=== PATIENT | male | born 1985 | race Caucasian/White ===

== ENCOUNTER 2021-03-14 17:49 | Emergency (ER) | payer MEDICAID, MEDICARE ==
[~2021-03-14] VITALS: Ht 180 cm; Wt 90.0 kg
[~2021-03-14 17:49] MED LIST: FLUORESCEIN (FLUOR-I-STRIPS) 1 MG STRP ONE; TETRACAINE 0.5% OPHTH SOLN 4 ML BTL (SINGLE DOSE ONLY) ONE
--- NOTE | 2021-03-14 17:54 | ED EENT ---
History of Present Illness General Stated Complaint: RT EYE PROBLEMS History of Present Illness Date Seen by Provider: March 14, 2021 Time Seen by Provider: 17:54 Initial Comments 35-year-old male presents with possible foreign body in his right eye. Patient has developmental delay. He likes to break CDs. He broke a CD and possibly had a piece fly up into his right eye. Patient complains of some mild pain. HPI is limited based on his developmental delay. There is no other complaints. Allergies and Home Medications Allergies Coded Allergies: No Known Drug Allergies (Unverified , 03/14/21) Patient Home Medication List Home Medication List Reviewed: Yes Review of Systems Review of Systems Constitutional: no symptoms reported Eyes: See HPI Ears: No Symptoms Reported Nose: no symptoms reported Respiratory: no symptoms reported Cardiovascular: no symptoms reported Past Ebulrfu-Ofakwk-Dykmru Hx Past Med/Social Hx: Reviewed Nursing Past Med/Soc Hx Physical Exam Vital Signs Vital Signs - First Documented 03/14/21 17:50 Temp 36.9 Pulse 75 Resp 18 B/P (MAP) 133/91 (105) Pulse Ox 97 O2 Delivery Room Air Height, Weight, BMI Height: '" Weight: lbs. oz. kg; BMI Method: General Appearance: WD/WN, no apparent distress Eyes: right eye other (Very small clear foreign body right cornea, no obvious abrasion with fluorescein stain) Mouth/Throat: pharynx normal Cardiovascular: normal peripheral pulses, regular rate, rhythm Respiratory: lungs clear, normal breath sounds Skin: normal color, warm/dry Procedures/Interventions Eye : Location: right eye Eye FB Removal: removal w/ cotton swab Anesthesia (gtts): Tetracaine Progress/Procedure Conclusion Foreign body is no longer visualized. I recommended they follow-up with an eye doctor tomorrow since it was very difficult to see due to it being clear and extremely small. Patient is not complaining of foreign body sensation at this time Progress/Results/Core Measures Results/Orders My Orders Orders - EVELINE SALEH DO Tetracaine 0.5% Ophth Adriane Sdv (Tetracai (03/14/21 17:48) Fluorescein Strips ([id number]) (03/14/21 17:49) Tetracaine 0.5% Ophth Adriane Sdv (Tetracai (03/14/21 18:15) Fluorescein Strips ([id number]) (03/14/21 18:15) Departure Impression Primary Impression: Foreign body of right conjunctiva Qualified Codes: T15.11XA - Foreign body in conjunctival sac, right eye, initial encounter Disposition: 01 HOME, SELF-CARE Condition: Stable Departure-Patient Inst. Patient Instructions: Foreign Body in Eye ED Add. Discharge Instructions: Follow-up with sole conforming machine operator tomorrow for reevaluation EVELINE SALEH DO March 14, 2021 17:54
[2021-03-14 18:12] VITALS: BP 133/91
[2021-03-14] MEDS ORDERED: TETRACAINE 0.5% OPHTH SOLN 4 ML BTL (SINGLE DOSE ONLY) OU ONE (18:15)
[2021-03-14] MEDS ORDERED: FLUORESCEIN (FLUOR-I-STRIPS) 1 MG STRP OU ONE (18:15)
== END 2021-03-14 18:12 | disposition home or self-care (01) ==
LOC: ER FS 17:52
DX: T15.11XA Foreign body in conjunctival sac, right eye, initial encounter (principal)
CPT/HCPCS: 99282

== ENCOUNTER → 2021-10-30 | Outpatient (CLI) | payer MEDICARE, MEDICAID ==
[2021-10-30 11:04] LABS: ALBUMIN 4.4 GM/DL (3.2-4.5); BILIRUBIN,TOTAL 0.2 MG/DL (0.1-1.0); CALCIUM 9.1 MG/DL (8.5-10.1); CREATININE SERUM 0.93 MG/DL (0.60-1.30); POTASSIUM 4.2 MMOL/L (3.6-5.0); TOTAL PROTEIN 7.2 GM/DL (6.4-8.2)
[2021-10-30 11:17] LABS: HEMATOCRIT 45 % (40-54); MEAN CORPUSCULAR HEMOGLOBIN 31 pg (25-34); MEAN CORPUSCULAR HGB CONC 33 g/dL (32-36); MEAN CORPUSCULAR VOLUME 91 fL (80-99); PLATELET COUNT 237 10^3/uL (130-400); WHITE BLOOD COUNT 7.2 10^3/uL (4.3-11.0)
== END ==
LOC: LAB FS 08:34
DX: F72 Severe intellectual disabilities (principal); F91.9 Conduct disorder, unspecified; F42.2 Mixed obsessional thoughts and acts; Z79.899 Other long term (current) drug therapy
CPT/HCPCS: 36415; 80053; 80061; 80156; 83036; 84443; 85027

== ENCOUNTER → 2022-08-30 | Outpatient (CLI) | payer MEDICARE, MEDICAID ==
[2022-08-30 09:38] LABS: HEMATOCRIT 43 % (40-54); HEMOGLOBIN 14.5 g/dL (13.3-17.7); MEAN CORPUSCULAR HEMOGLOBIN 31 pg (25-34); MEAN CORPUSCULAR HGB CONC 34 g/dL (32-36); MEAN CORPUSCULAR VOLUME 90 fL (80-99); MEAN PLATELET VOLUME 9.2 fL (9.0-12.2); PLATELET COUNT 235 10^3/uL (130-400); WHITE BLOOD COUNT 7.3 10^3/uL (4.3-11.0)
[2022-08-30 09:48] LABS: ALBUMIN 4.3 GM/DL (3.2-4.5); BILIRUBIN,TOTAL 0.3 MG/DL (0.1-1.0); CREATININE SERUM 0.96 MG/DL (0.60-1.30); POTASSIUM 4.1 MMOL/L (3.6-5.0)
[2022-08-30 15:38] LABS: CARBAMAZEPINE (TEGRETOL) 6.2 UG/ML (4.0-12.0)
== END ==
LOC: LAB FS 08:14
PROVIDERS: ATTEND Nurse Practitioner Psychiatric/Mental Health
DX: F72 Severe intellectual disabilities (principal); F91.9 Conduct disorder, unspecified; F42.2 Mixed obsessional thoughts and acts; Z79.899 Other long term (current) drug therapy
CPT/HCPCS: 36415; 80053; 80061; 80156; 83036; 84443; 85027